=== PATIENT | female | born 1990 | race Caucasian/White ===

== ENCOUNTER 2024-07-28 07:27 | Inpatient (IN) ==
[2024-07-28] MEDS ORDERED: LIDOCAINE 1% LOCAL 20 ML VIAL INFIL PRN (07:47)
[2024-07-28 08:13] LABS: Hematocrit (blood only) 41.8 % (37.0-47.0); Hemoglobin 14.5 g/dl (12.0-16.0); Mean Corpuscular Hemoglobin 28.4 pg (25.0-34.0); Mean Corpuscular Hgb Conc 34.7 g/dL (32.0-36.0); Mean Platelet Volume 10.4 fL (9.4-12.4); Platelet Count 266 K/uL (130-400); RDW Coefficient of Variation 13.4 % (11.5-14.5); RDW Standard Deviation 38.9 fL (36.4-46.3); White Blood Count 13.82 K/ul (4.8-10.8)
[2024-07-28] MEDS: LACTATED RINGER'S 1,000 ML IV PRN (09:20)
[2024-07-28] MEDS: PENICILLIN GK 6 MU in DEXTROSE 5% 250 ML IV STA (09:20)
[2024-07-28] MEDS: OXYTOCIN 30 UNITS/NSS 30 UNITS/500 ML BAG IV PRN ×2 (09:29→17:56)
--- NOTE | 2024-07-28 10:09 | History & Physical Report ---
Date of Service July 28, 2024 Assessment & Plan (1) Encounter for supervision of normal intrauterine in multigravida, antepartum: (2) Need for rhogam due to Rh negative mother: (3) Positive GBS test: Plan Nayeli is a 33 y/o female currently at 40 5/7 WGA with an MARKIE 07/23/24 as determined by LMP who is here for induction secondary to post dates. Her was complicated by Rh negative and GBS positive. Waters bulb fell out of cervix overnight/this morning and found in vaginal vault on exam this morning. Pt has made good progress in cervical dilation and effacement when compared to 07/27. - Will start IV oxytocin - Ordered loading dose of Penicillin, and doing q4h until delivery - Consider amniotomy to progress labor - Consult for anesthesiology for epidural per pt request - Continue NPO until delivery Admission and Anticipated Discharge Date Admission Date: July 28, 2024 History of Present Illness Primary Care Provider: Jesika Cooper MD Nayeli is a 33 y/o female currently at 40 5/7 WGA with an MARKIE 07/23/24 as determined by LMP who is here for induction secondary to post dates. Her was complicated by Rh negative and GBS positive . irregular contractions; regular movement; no fluid loss; no bloody show. Had regular appointments with OB. Blood Type A Negative 05/06/24 Antibody Screen NEGATIVE 05/06/24 Hgb 12.3 g/dl (12.0-16.0) 05/06/24 Hct 35.8 % (37.0-47.0) L 05/06/24 Treponema pallidum Ab Negative (Negative) 05/06/24 Glucose 1 Hr 50 gm 111 mg/dl (70-130) 05/06/24 OB Optional Labs: No Data to Display Labs Reviewed: Initial OB Labs 12/25/23 Blood Type & RH A Negative Antibody ScreenNegative HCT/HGB41.5/14.3 [id number] Hep C IgG 13yrs+ OldNegative Pap Test02/2022 Chlamydianegative Gonorrheanegative Rubellaimmune RPRnon reactive Urine Culture/Screenno growth HBsAgnegative HIVnegative MCV89.4 H.5 (today) Hct: 41.8 (today) WBC: 13.82 (today) Plt: 266 (today) Allergies Allergy/AdvReac Type Severity Reaction Status Date / Time bactrim Allergy Severe Swelling Uncoded 07/27/24 19:26 of Lip/Tongue/Throat Home Medications Medication Instructions Recorded Confirmed Type vits no.124-ferrous fum 1 tab PO DAILY 07/27/24 07/28/24 History 27 mg iron-folic acid 800 mcg tablet ( Vitamin) Patient History Medical History No known health problems Surgical History [place] teeth removed Family History Other Diabetes Heart disease Social History (Updated 03/11/24 @ 13:37 by Bev [place]) Smoking Status: Never smoker Do You Dip or Chew Tobacco: No; Hx Alcohol Use: No Hx Substance Use: No Preferred Language: Indonesian Communication Ability: Effective Inspector Tester Sorter Required: No Beliefs That Will Affect Care: None marital status: marital status details: Ankur (33) [phone] Current Living Situation: Spouse Current Living Situation Comment: lives with spouse, no pets current occupational status: employed 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 Denies breast pain. Denies dysuria. Denies headache or changes in vision. Physical Exam Physical Exam: General: Alert, oriented. No acute distress. Cardiac: Regular rate and rhythm, no murmurs/rubs/gallops. Respiratory: Clear to auscultation bilaterally a/p, no wheezes/rales/rhonchi. No increased work of breathing. Symmetrical chest rise. No respiratory distress. Abdomen: Gravid; Pelvic: Dilation 6 cm; Effacement 80%; Station -[address] Randolph Lower Extremities: No lower extremity edema or swelling. No deep calf pain. Yun's negative bilaterally Results & Data Vital Signs (Past 12 Hours) Vital Signs Temp Pulse Resp BP 07/28/24 09:32 83 20 123/83 07/28/24 07:37 36.5 C 102 H 20 116/81 07/28/24 07:36 102 H 116/81 Code Status & VTE Plan VTE Prophylaxis Plan VTE Prophylaxis will be ordered: No Monitoring External Monitor External FHT and external uterine monitors used; Category 1 tracing; moderate FHT variability. Supervising Physician Co-Signing Physician Notes Resident Physician Supervision Note: I interviewed and examined the patient. Discussed with Dr. Lagos and agree with findings and plan as documented in the note. Any exceptions or clarifications are listed here: Waters bulb already out, IOL with pitocin. Documented By: Tana Randolph DO Resident Activity Tracking Resident Involvement: Resident Care Provided Care Provided: Adult Hospital Medicine
[2024-07-28] MEDS ORDERED: NALOXONE HCL 1 MG in SODIUM CHLORIDE 0.9% 1,000 ML IV PRN (10:18)
[2024-07-28] MEDS ORDERED: diphenhydrAMINE 50 MG/ML VIAL IV PRN (10:18)
[2024-07-28] MEDS ORDERED: NALBUPHINE HCL INJ 10 MG/ML AMP IV PRN (10:18)
[2024-07-28] MEDS ORDERED: fentaNYL citrate PF 100 MCG/2 ML VIAL EPI PRN (10:18)
[2024-07-28] MEDS ORDERED: ROPIVACAINE 0.5% PF 5 MG/ML 20 ML VIAL EPI PRN (10:18)
[2024-07-28] MEDS ORDERED: ONDANSETRON INJ 2 MG/ML 2 ML VIAL IV PRN (10:18)
[2024-07-28] MEDS ORDERED: SODIUM CHLORIDE 0.9% PF INJ 10 ML VIAL EPI PRN (10:18)
[2024-07-28] MEDS ORDERED: LIDOCAINE 2% MPF LOCAL 5 ML VIAL EPI PRN (10:18)
[2024-07-28] MEDS ORDERED: BUPIVACAINE 0.25% PF 30 ML VIAL EPI PRN (10:18)
[2024-07-28] MEDS ORDERED: ePHEDrine sulfate 50 MG/ML AMP IV PRN (10:18)
[2024-07-28] MEDS ORDERED: NALOXONE HCL 0.4 MG/1 ML VIAL/CARP IV PRN (10:18)
--- NOTE | 2024-07-28 10:19 | Anesthesiology Consultation ---
Date of Service July 28, 2024 Assessment & Plan (1) Encounter for pre-operative examination: Chart Review Chart Review: Patient NOT seen in Pre Admission Testing and Acceptable Risk for Labor Epidural Consults Requested none History Height/Weight Height: 5 ft 5 in Weight: 68.039 kg Allergies Allergy/AdvReac Type Severity Reaction Status Date / Time bactrim Allergy Severe Swelling Uncoded 07/27/24 19:26 of Lip/Tongue/Throat Medications Home Medications Medication Instructions Recorded Confirmed Last Taken vits no.124-ferrous fum 1 tab PO DAILY 07/27/24 07/28/24 07/28/24 06:30 27 mg iron-folic acid 800 mcg tablet ( Vitamin) Active Medications Generic Name Dose Route Start Last Admin Trade Name Freq PRN Reason Stop Dose Admin Lactated Ringer's 1,000 mls @ 125 mls/hr 07/28/24 07:47 07/28/24 09:21 Lr IV 07/30/24 07:46 0 mls/hr .Q8H PRN Infusion L&D Protocol Protocol Oxytocin 30 units in 500 mls @ 3 mls/hr 07/28/24 08:11 07/28/24 10:00 Pitocin 30 Units/Nss IV 07/30/24 08:10 0.18 units/hr .Q24H PRN 3 mls/hr Labor Induction/Augmentation Titration Protocol 0.18 UNITS/HR Past Medical History Medical History No known health problems Past Family History Family History Other Diabetes Heart disease Past Surgical History Surgical History [place] teeth removed Social History Smoking Status: Never smoker Do You Dip or Chew Tobacco: No Hx Alcohol Use: No Hx Substance Use: No substance use type: does not use Physical Exam Vital Signs Last Vital Signs Temp 97.7 F 07/28/24 07:37 Pulse 83 07/28/24 09:32 Resp 20 07/28/24 09:32 BP 123/83 07/28/24 09:32 Testing Laboratory Results 07/28/24 07:52
[2024-07-28] MEDS: LIDOCAINE 2%/EPINEPHRINE 1:200,000 20 ML PF ONE ×2 (10:44→11:11)
[2024-07-28] MEDS: fentaNYL citrate PF 100 MCG/2 ML VIAL ONE ×2 (10:44→11:11)
[2024-07-28] MEDS: BUPIVACAINE 0.25% PF 30 ML VIAL ONE ×2 (10:44→11:11)
[2024-07-28] MEDS: fentANYL 2 MCG/ML BUPIVacaine 0.125%-NSS 100ML BAG ONE ×2 (10:45→11:11)
[2024-07-28] MEDS: ePHEDrine sulfate 50 MG/ML AMP ONE ×2 (11:11)
[2024-07-28] MEDS: SODIUM CHLORIDE 0.9% PF INJ 10 ML VIAL ONE ×2 (11:11)
[2024-07-28] MEDS: LIDOCAINE 2%/EPINEPHRINE 1:200,000 20 ML PF EPI STA (13:09)
[2024-07-28] MEDS: fentaNYL citrate PF 100 MCG/2 ML VIAL EPI STA (13:09)
[2024-07-28] MEDS: SODIUM CHLORIDE 0.9% PF INJ 10 ML VIAL EPI STA (13:09)
[2024-07-28] MEDS: BUPIVACAINE 0.25% PF 30 ML VIAL EPI STA (13:09)
[2024-07-28] MEDS: PENICILLIN GK 3 MU in DEXTROSE 5% 100 ML IV PRN (13:15)
--- NOTE | 2024-07-28 14:26 | Labor Progress Brief Note ---
Date of Service July 28, 2024 Subjective Comfortable with epidural. FHT Cat 1 [place] Q2 SVE 7-8/100/-1 AROM clear fluid. Continue IOL. Assessment & Plan Admission and Anticipated Discharge Date Admission Date: July 28, 2024 Results & Data Vital Signs (Past 12 Hours) Vital Signs Temp Pulse Resp BP Pulse Ox 07/28/24 14:23 121 H 100 07/28/24 14:22 125 H 91 07/28/24 14:18 95 H 100 07/28/24 14:13 93 H 100 07/28/24 14:09 96 H 91 07/28/24 14:08 92 H 98 07/28/24 14:07 93 H 110/79 07/28/24 14:03 78 100 07/28/24 13:58 79 91 07/28/24 13:56 88 91 07/28/24 13:53 77 100 07/28/24 13:52 77 112/77 07/28/24 13:50 86 93 07/28/24 13:48 88 94 07/28/24 13:44 87 92 07/28/24 13:43 86 99 07/28/24 13:39 86 118/83 93 07/28/24 13:38 88 100 07/28/24 13:33 90 93 07/28/24 13:29 79 92 07/28/24 13:28 90 96 07/28/24 13:23 98 H 99 07/28/24 13:22 92 H 104/69 07/28/24 13:20 85 94 07/28/24 13:18 88 100 07/28/24 13:13 87 100 07/28/24 13:08 100 07/28/24 13:08 79 07/28/24 13:08 72 113/75 07/28/24 13:05 88 90 07/28/24 13:03 77 98 07/28/24 12:58 110 H 100 07/28/24 12:56 123 H 93 07/28/24 12:53 95 H 100 07/28/24 12:52 89 108/69 07/28/24 12:49 90 90 07/28/24 12:48 85 99 07/28/24 12:43 84 100 07/28/24 12:38 92 H 100 07/28/24 12:37 83 96/61 L 07/28/24 12:33 94 H 100 07/28/24 12:28 94 H 100 07/28/24 12:23 100 07/28/24 12:23 78 06 12:23 74 110/73 07/28/24 12:19 86 90 07/28/24 12:18 93 H 95 07/28/24 12:13 74 100 07/28/24 12:08 100 07/28/24 12:08 81 07/28/24 12:08 79 92 07/28/24 12:07 79 121/79 07/28/24 12:03 83 100 07/28/24 11:58 72 100 07/28/24 11:53 83 100 07/28/24 11:52 71 109/79 07/28/24 11:51 73 92 07/28/24 11:48 72 100 07/28/24 11:43 83 100 07/28/24 11:41 91 H 91 07/28/24 11:38 80 119/75 100 07/28/24 11:34 81 87 L 07/28/24 11:33 92 H 100 07/28/24 11:28 78 97 07/28/24 11:23 75 120/82 100 07/28/24 11:18 72 100 07/28/24 11:13 75 100 07/28/24 11:08 77 100 07/28/24 11:05 78 119/75 07/28/24 11:03 82 100 07/28/24 10:59 96 H 117/78 07/28/24 10:58 80 100 07/28/24 10:54 81 113/71 07/28/24 10:53 76 100 07/28/24 10:48 88 114/71 100 07/28/24 10:46 89 123/72 07/28/24 10:44 98 H 120/85 07/28/24 10:43 93 H 100 07/28/24 10:42 115 H 108/81 07/28/24 10:40 91 H 120/76 07/28/24 10:38 100 07/28/24 10:38 94 H 07/28/24 10:38 100 H 113/74 06 10:33 111 H 100 07/28/24 09:32 83 20 123/83 07/28/24 07:37 36.5 C 102 H 20 116/81 06/18/25 07:36 102 H 116/81 Coding Level of Care Code None
[2024-07-28] MEDS: fentANYL 2 MCG/ML BUPIVacaine 0.125%-NSS 100ML BAG EPI PRN (16:39)
[2024-07-28] MEDS: TRANEXAMIC ACID / 0.7% NACL 1000MG/100ML BAG IV ONE (17:45)
--- NOTE | 2024-07-28 17:47 | Delivery Summary ---
Vaginal Delivery Summary Date of Service July 28, 2024 Vaginal Delivery Summary and 3rd Degree LAC Vaginal Delivery Summary: Pre-delivery diagnoses: 33yo @ 40 5/7, IOL, GBS+ Post-delivery diagnoses: same Procedure: spontaneous vaginal delivery Surgeon: Tana Randolph DO Complications: none Findings: Viable male . Apgars: 8/9. Weight pending, please see nursery records Estimated QBL: 487cc Description of delivery: The patient progressed to complete with epidural anesthesia. She then began to push. She spontaneously vaginally delivered a viable from the cephalic presentation. The head delivered in ROP position. The anterior shoulder delivered, followed by the posterior shoulder, followed by the body. Nuchal x 1, delivered through, compound hand. The baby was placed on mother's abdomen and a spontaneous cry was heard. Delayed cord clamping was employed, and the cord was doubly clamped and cut. Cord blood was obtained. The umbilical cord avulsed, therefore the placenta was delivered via manual extraction. Uterus became firm, sweep revealed no remaining placental fragments. The uterus and vagina were swept of clots and debris. IV pitocin was given. The uterus remained firm. The cervix, vagina, and perineum were inspected. Partial 3rd degree tear - partial anal sphincter tear, repaired with 3-0 Chromic. The remaining tear was reapproximated with 3-0 Vicryl in standard fashion. Due to seemingly large EBL during oozy repair and manual extraction (at end of delivery, weighed sponges/underbag were 487cc QBL), ordered 1g TXA. At end of delivery and repair, uterus firm and excellent hemostasis was observed. The mother and baby are recovering in stable and good condition in the room. Sponge, needle and instrument counts were correct x 2. Tana Randolph DO [facility] Vaginal Delivery Charge Vaginal Delivery Codes: 19278 global code for the antepartum, delivery, and post- Delivery Type Details: and 3rd Degree LAC
[2024-07-28] MEDS ORDERED: HYDROCORTISONE ACETATE 25 MG SUPP PR PRN (18:05)
[2024-07-28] MEDS ORDERED: OXYTOCIN 30 UNITS/NSS 30 UNITS/500 ML BAG IV PRN (18:05)
[2024-07-28] MEDS ORDERED: oxyCODONE/ACETAMINOPHEN 5mg/325mg TAB PO PRN (18:05)
[2024-07-28] MEDS ORDERED: bisacodyL 10 MG SUPP PR PRN (18:05)
--- NOTE | 2024-07-28 18:47 | Anesthesia Procedure Note ---
Date of Service July 28, 2024 Anesthesia Post Epidural Note Vital Signs Vital Signs: Temp Pulse Resp BP Pulse Ox 98.6 F 126 H 20 111/65 97 07/28/24 15:30 07/28/24 18:37 07/28/24 15:30 07/28/24 18:37 07/28/24 17:03 Pain Intensity Bilateral Abdomen: Pain Intensity: 0 Notes Mental Status: alert / awake / arousable and participated in evaluation Nausea / Vomiting: adequately controlled Pain: adequately controlled Airway Patency, RR, SpO2: stable & adequate BP & HR: stable & adequate Hydration State: stable & adequate Neuraxial Anesthesia: was administered and sensory block is resolving Anesthetic Complications: no major complications apparent and Pt Satisfied with anesthetic care Epidural: Removed without complications and With tip intact
[2024-07-28] MEDS: DIPHTHER/TETAN/PERTUS Vaccine (Tdap, Adol/Adult) 0.5mL IM ONE (18:56)
[2024-07-28] MEDS: ceFAZolin 1000MG 1,000 MG/7.5 ML SYR IV SCH (19:07)
[2024-07-28] MEDS: BENZOCAINE 20% SPRY 85 APPLN/85 GM CAN EXT PRN (20:17)
[2024-07-28 20:20] LABS: Hematocrit (blood only) 31.8 % (37.0-47.0); Hemoglobin 10.9 g/dl (12.0-16.0)
[2024-07-28] MEDS: IBUPROFEN 600 MG TAB PO PRN (20:43)
[2024-07-28] MEDS: DOCUSATE SODIUM 100 MG CAP PO SCH (20:44)
[2024-07-28] MEDS: ACETAMINOPHEN 325 MG TAB PO PRN (21:16)
--- NOTE | 2024-07-29 06:04 | Obstetrical Progress Note ---
Date of Service July 29, 2024 Assessment & Plan (1) Encounter for care and examination after delivery: (2) Positive GBS test: (3) Need for rhogam due to Rh negative mother: Plan Pt is 33 yo post- day 1 s/p at 40w5d. complicated by GBS positive and Rh Negative status. Drop in Hbg following delivery from 14.5 to 10.4. Pt is currently asymptomatic. Pt has concerns for baby latching and feeing - Encourage ambulation - Encourage breast feeding, consult marketing content specialist - Pain control with ibuprofen and Tylenol - Anticipate DC on 07/30 Admission and Anticipated Discharge Date Admission Date: July 28, 2024 Supervising Physician Co-Signing Physician Notes Resident Physician Supervision Note: I interviewed and examined the patient. Discussed with Dr. Lagos and agree with findings and plan as documented in the note. Any exceptions or clarifications are listed here: PPD#1 doing well. Routine care. Documented By: Tana Randolph, DO Subjective Pt is 33 yo post- day 1 s/p at 40w5d. complicated by GBS positive and Rh Negative status Ambulation:In and out of room Voiding:voiding normally Passing gas: yes BM: no Diet tolerance:regular diet Lochia:bloody, no clots Feeding type: breast Current pain level: 1-3 /10 improved with ibuprofen Resting comfortably this morning in NAD. Denies BLAND, CP, SOB, N/V/D, LE pain/swelling. Review of Systems Review of Systems: As per HPI Physical Exam Constitutional: WD/WN, vitals as above Respiratory: normal respiratory effort, lungs clear to auscultation Cardiovascular: RRR, no murmur, no edema Gastrointestinal (Abdomen): normal bowel sounds, soft, nontender, no hepatosplenomegaly Uterine fundus firm and at 1 cm below level of umbilicus Neurologic: PERRL, EOMI, accommodation nl, no face palsy, no dysarthria Moving all 4 extremities on command Psychiatric: A+Ox3, euthymic affect Results & Data Vital Signs (Past 12 Hours) Vital Signs Temp Pulse Pulse Resp BP BP Pulse Ox 07/29/24 04:24 36.4 C L 78 16 92/58 L 98 07/28/24 23:02 36.7 C 88 16 100/68 96 07/28/24 21:45 36.9 C 106 H 18 96/64 L 98 07/28/24 19:52 106 H 102/65 07/28/24 19:37 102 H 104/64 07/28/24 19:30 18 07/28/24 19:22 105 H 104/64 07/28/24 19:07 99 H 102/66 07/28/24 19:00 36.8 C 18 07/28/24 18:52 97 H 103/65 07/28/24 18:37 126 H 111/65 07/28/24 18:22 119/71 07/28/24 18:07 102 H 118/64 O2 Del Method 07/29/24 04:24 Room Air 07/28/24 23:02 Room Air 07/28/24 21:45 Room Air 07/28/24 19:52 07/28/24 19:37 07/28/24 19:30 07/28/24 19:22 07/28/24 19:07 07/28/24 19:00 07/28/24 18:52 07/28/24 18:37 07/28/24 18:22 07/28/24 18:07 Resident Activity Tracking Resident Involvement: Resident Care Provided Care Provided: Adult Hospital Medicine
[2024-07-29 06:33] LABS: Hematocrit (blood only) 30.8 % (37.0-47.0); Hemoglobin 10.5 g/dl (12.0-16.0); Mean Corpuscular Hemoglobin 28.6 pg (25.0-34.0); Mean Corpuscular Hgb Conc 34.1 g/dL (32.0-36.0); Mean Corpuscular Volume 83.9 fL (80.0-100.0); Mean Platelet Volume 10.2 fL (9.4-12.4); Platelet Count 179 K/uL (130-400); RDW Coefficient of Variation 13.4 % (11.5-14.5); Red Blood Count 3.67 M/uL (4.20-5.40); White Blood Count 15.77 K/ul (4.8-10.8)
[2024-07-29] MEDS: PRENATAL VITAMIN 1 TAB PO SCH (09:02)
[2024-07-29] MEDS: bisacodyL 5 MG TABEC PO SCH (20:37)
[2024-07-29 20:45] VITALS: O2SAT 100
--- NOTE | 2024-07-30 05:57 | Obstetrical Progress Note ---
Date of Service July 30, 2024 Assessment & Plan (1) Encounter for care and examination after delivery: (2) Positive GBS test: (3) Need for rhogam due to Rh negative mother: Plan Pt is 33 yo post- day 2 s/p at 40w5d. complicated by GBS positive and Rh Negative status. Non pitting right LE edema noted. No pain with palpation or discoloration. - Encourage ambulation - Encourage breast feeding - Pain control with ibuprofen and Tylenol - Anticipate DC today Admission and Anticipated Discharge Date Admission Date: July 28, 2024 Supervising Physician Co-Signing Physician Notes Resident Physician Supervision Note: I was present with [Name of resident] during the history and exam. I discussed the case with the resident and agree with the findings and plan as documented in the note. Any exceptions or clarifications are listed here: [None] Documented By: Vonda Jones MD, FACOG Subjective Pt is 33 yo post- day 2 s/p at 40w5d. complicated by GBS positive and Rh Negative status Ambulation:In and out of room Voiding:voiding normally Passing gas: yes BM: nyes Diet tolerance:regular diet Lochia:bloody, no clots Feeding type: breast Current pain level: 1-3 /10 improved with ibuprofen Resting comfortably this morning in NAD. Denies BLAND, CP, SOB, N/V/D, LE pain/swelling. Review of Systems Review of Systems: As per HPI Physical Exam Constitutional: WD/WN, vitals as above Respiratory: normal respiratory effort, lungs clear to auscultation Cardiovascular: RRR, no murmur, no edema Gastrointestinal (Abdomen): normal bowel sounds, soft, nontender, no hepatosplenomegaly Uterine fundus is firm and 2 cm below umbilicus Neurologic: PERRL, EOMI, accommodation nl, no face palsy, no dysarthria Psychiatric: A+Ox3, euthymic affect Results & Data Vital Signs (Past 12 Hours) Vital Signs Temp Pulse Resp BP Pulse Ox O2 Del Method 07/30/24 01:00 36.5 C 90 18 106/74 100 Room Air 07/29/24 20:30 36.5 C 90 16 100/98 100 Room Air Resident Activity Tracking Resident Involvement: Resident Care Provided Care Provided: Adult Hospital Medicine
[2024-07-30 08:50] VITALS: PULSE 97; RESP 16
[2024-07-30 11:13] VITALS: BP 115/76; TEMP 97.3
== END 2024-07-30 13:00 | disposition home or self-care (01) | DRG 768 ==
LOC: 4S1 07:27 → 4E2 20:40